=== PATIENT | male | born 2005 | race Caucasian/White ===

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

== ENCOUNTER 2024-08-12 17:46 | Emergency (ER) | payer BC ==
[2024-08-12] MEDS: Diphtheria,Pertussis(Acell),Tetanus Vaccine 0.5 ML Syringe IM ONE (18:17)
== END 2024-08-12 18:26 | disposition home or self-care (01) ==
LOC: LL.ED 17:46
DX: S91.131A Puncture wound without foreign body of right great toe without damage to nail, initial encounter (principal); Z88.0 Allergy status to penicillin; Z23 Encounter for immunization; Z88.8 Allergy status to other drugs, medicaments and biological substances; W45.0XXA Nail entering through skin, initial encounter; Y93.89 Activity, other specified
CPT/HCPCS: 90471; 90715; 99283; 99283-25